=== PATIENT | male | born 1990 | race Hispanic/Latino ===

== ENCOUNTER 2017-07-06 20:22 | Emergency (ER) | payer OTHER ==
[2017-07-06] MEDS ORDERED: OCTYL 2-CYANOACRYLATE 1 EACH TP ONE (21:00)
[2017-07-06] MEDS ORDERED: TETANUS/DIPHTHERIA TOXOID [ADULT] 0.5 ML VIAL IM ONE (21:19)
== END 2017-07-06 21:35 | disposition home or self-care (01) ==
LOC: EDH 20:22
DX: S61.412A Laceration without foreign body of left hand, initial encounter (principal); W26.0XXA Contact with knife, initial encounter; Y93.89 Activity, other specified; Y92.89 Other specified places as the place of occurrence of the external cause; Y99.8 Other external cause status
CPT/HCPCS: 12001; 90471; 90714

== ENCOUNTER 2018-01-30 00:30 | Emergency (ER) | payer OTHER ==
[2018-01-30] MEDS ORDERED: LIDOCAINE 1%-EPI 1:100,000 20 ML VIAL IJ ONE (01:05)
[2018-01-30] MEDS ORDERED: OCTYL 2-CYANOACRYLATE 1 EACH TP ONE (01:08)
== END 2018-01-30 01:48 | disposition home or self-care (01) ==
LOC: EDH 00:30
DX: S51.811A Laceration without foreign body of right forearm, initial encounter (principal); S61.411A Laceration without foreign body of right hand, initial encounter; Z72.0 Tobacco use; W26.0XXA Contact with knife, initial encounter; Y93.G3 Activity, cooking and baking; Y92.098 Other place in other non-institutional residence as the place of occurrence of the external cause; Y99.8 Other external cause status
CPT/HCPCS: 12031; 12041; 99285; J3490

== ENCOUNTER 2018-02-05 08:18 | Emergency (ER) | payer OTHER | END 2018-02-05 09:05 | disposition home or self-care (01) | LOC: EDH 08:18 | DX: S51.811D Laceration without foreign body of right forearm, subsequent encounter (principal); X58.XXXD Exposure to other specified factors, subsequent encounter | CPT/HCPCS: 99281 ==